=== PATIENT | female | born 1945 | race Hispanic/Latino ===

== ENCOUNTER 2018-06-23 15:33 | Inpatient (IN) | payer MEDICARE ==
--- NOTE | 2018-06-23 15:46 | C.PDOC ---
History Of Present Illness Patient BIBA from home for evaluation of altered mental status. Patient last seen at her baseline at 11:30am, and then was found by daughter at approx 2:30pm appearing nonverbal and confused. EMS reports patient being nonverbal and unable to follow commands. Patient takes Benzos (Xanax?) for anxiety. PMHx of HTN, anxiety. Patient is AAOx3 at baseline. Time Seen by Provider: 06/23/18 15:38 Chief Complaint (Nursing): Weakness/Neurological Deficit History Per: EMS History/Exam Limitations: clinical condition Onset/Duration Of Symptoms: Hrs Current Symptoms Are (Timing): Still Present Past Medical History Reviewed: Historical Data, Nursing Documentation, Vital Signs Vital Signs: Last Vital Signs Temp 98.1 F 06/23/18 15:39 Pulse 88 06/23/18 15:34 Resp 20 06/23/18 15:34 BP 187/89 H 06/23/18 15:34 Pulse Ox 95 06/23/18 15:34 - Medical History PMH: Anxiety, HTN Family History: States: Unknown Family Hx - Social History Hx Alcohol Use: No Hx Substance Use: No Review Of Systems Review Of Systems: ROS cannot be obtained secondary to pt's inabilty to answer questions. Physical Exam - Physical Exam Appears: Non-toxic, Other (awake, drowsy appearing, mumbling) Skin: Normal Color, Warm, Dry Head: Atraumatic, Normacephalic Eye(s): bilateral: Normal Inspection, PERRL, EOMI, Other (no pinpoint or dilated pupila) Oral Mucosa: Moist Cardiovascular: Rhythm Regular Respiratory: Normal Breath Sounds, No Rales, No Rhonchi, No Wheezing Gastrointestinal/Abdominal: Normal Exam, Bowel Sounds, Soft, No Tenderness Extremity: Normal ROM, No Pedal Edema, No Calf Tenderness Extremity: Left: Unable To Bear Weight, Other ED Course And Treatment - Laboratory Results Result Diagrams: 06/23/18 15:46 06/23/18 15:46 O2 Sat by Pulse Oximetry: 95 (RA) Pulse Ox Interpretation: Normal Progress Note: Code stroke called on ED arrival. 3:50pm- Called by CT scan, patient now able to speak somewhat, and tells them she is allergic to contrast. CTA head/neck cancelled. 4:15pm- Patient is awake & alert, oriented to place but confused and still having some difficulty following commands. Patient is speaking but slowly, with some stuttering. 5:10PM- Spoke with radiologist Dr. Miller, he confirms CT scan read should say "no intracranial hemorrhage", will add addendum. 5:45PM- Family now at bedside, patient is AAOx3 and functional at baseline. Has PMhx of HTN, anxiety and macular degeneration, yesterday was given Avastin injection in her eyes by her ophthamologist. Patient also seen in urgent care thursday for head/sinus "pressure/fullness", had normal evaluation there and was feeling well yesterday. NIHSS Stroke Scale 2 - Date/Time Evaluation Performed Date Performed: 06/23/18 Time Performed: 15:37 When Was NIHSS Performed: Baseline - How Severe is the Stroke Level of Consciousness: 1=Drowsy LOC to Questions: 2=Neither correct LOC to commands: 2=Neither correct Best Gaze: 0=Normal Visual: 0=No visual loss Facial: 0=Normal Motor Arm - Left: 0=No drift Motor Arm - Right: 0=No drift Motor Leg - Left: 0=No drift Motor Leg - Right: 0=No drift Limb Ataxia: 0=Absent Sensory: 0=Normal Best Language: 1=Mild to moderate aphasia Dysarthia: 1=Mild to moderate slurring Extinction & Inattention (Neglect): 0=Normal, no object Score: 7 rTPA Inclusion/Exclusion - Refusal of Treatment Patient Refused Treatment: No - Inclusion Criteria for Altepase Patient is 18 years or Older: Yes The Clinical Diagnosis of Ischemic Stroke That is Causing a Potentially Disabling Neurological Deficit: Yes Time of Onset is Well Established to be Less Than 270 Minute Before Treatment Would Begin: No Risk/Benefit Discussed With Patient/Family Member Present: No Disposition - Disposition Forms: [employer] ([place])
[2018-06-23] MEDS ORDERED: Iodixanol 320 MG/ML 100 ML BOTTLE IV ONE (15:51)
[2018-06-23 15:56] LABS: BASO % 0.3 % (0.0-2.0); EOS # 0.1 K/uL (0.0-0.7); EOS % 0.7 % (0.0-4.0); HEMOGLOBIN 12.7 g/dL (11.0-16.0); LYMPH # 0.9 K/uL (1.0-4.3); LYMPH % 10.2 % (20.0-40.0); MEAN CELL VOLUME 76.3 fL (81.0-99.0); MEAN CORPUSCULAR HEMOGLOBIN 26.1 pg (27.0-31.0); MEAN CORPUSCULAR HGB CONC 34.1 g/dL (33.0-37.0); MONO # 0.4 K/uL (0.0-0.8); MONO % 4.6 % (0.0-10.0); NEUT # 7.3 K/uL (1.8-7.0); NEUT % 84.2 % (50.0-75.0); RBC 4.87 Mil/uL (3.80-5.20); RED CELL DISTRIBUTION WIDTH 14.9 % (11.5-14.5); WHITE BLOOD COUNT 8.7 K/uL (4.8-10.8)
[2018-06-23 16:01] LABS: INR 1.1; PROTHROMBIN TIME 11.9 SECONDS (9.7-12.2)
[2018-06-23 16:04] LABS: ALB/GLOB RATIO 1.6 (1.0-2.1); ALBUMIN 4.7 g/dL (3.5-5.0); BLOOD UREA NITROGEN 13 mg/dL (7-17); CALCIUM 9.2 mg/dl (8.6-10.4); GFR NON-AFRICAN AMERICAN > 60; HDL CHOLESTEROL 48 mg/dL (30-70)
--- NOTE | 2018-06-23 16:04 | CT ---
Date of service: 06/23/2018 PROCEDURE: CT HEAD WITHOUT CONTRAST. HISTORY: Code Stroke COMPARISON: None available. TECHNIQUE: Axial computed tomography images were obtained through the head/brain without intravenous contrast. Radiation dose: Total exam DLP = 1027.87 mGy-cm. This CT exam was performed using one or more of the following dose reduction techniques: Automated exposure control, adjustment of the mA and/or kV according to patient size, and/or use of iterative reconstruction technique. FINDINGS: HEMORRHAGE: No acute parenchymal, subarachnoid nor extra-axial hemorrhage... BRAIN: Suspect minimal chronic periventricular white matter ischemic changes. There appears to be enlargement of the pituitary gland. Findings may represent a pituitary adenoma; recommend follow-up pre and postcontrast MRI of the brain.. Ventricular and sulcal size are within range of normal this patient's stated age VENTRICLES: Unremarkable. No hydrocephalus. CALVARIUM: No acute fractures. Note made of hyperostosis frontalis interna PARANASAL SINUSES: Incidental note made of a small osteoma within one of the right the mid see superior ethmoid air cells. MASTOID AIR CELLS: Unremarkable as visualized. No inflammatory changes. OTHER FINDINGS: None. IMPRESSION: Intracranial hemorrhage. Suspect minimal chronic periventricular white matter ischemic changes. There is a soft tissue mass density within the sella turcica which may represent a pituitary adenoma. Recommend follow-up pre and post-contrast MRI of the brain. Note these findings discussed with Dr. Peguero at approximately 3:57 p.m. with written down and read back verification.
[2018-06-23 16:15] LABS: LDL CHOLESTEROL 112 mg/dL (0-129)
[2018-06-23] MEDS ORDERED: Sodium Chloride 0.9% 1,000 ML IV ONE (16:15)
[2018-06-23 16:17] LABS: ALT/SGPT 20 U/L (9-52); AST/SGOT 50 U/L (14-36)
[2018-06-23 16:34] LABS: SQUAMOUS EPITHIAL < 1 /hpf (0-5); URINE BILIRUBIN NEGATIVE (NEGATIVE); URINE BLOOD NEGATIVE (NEGATIVE); URINE CLARITY Clear (Clear); URINE COLOR Yellow (YELLOW); URINE GLUCOSE (UA) NORMAL (Normal); URINE HYALINE CAST 0-2 /lpf (0-2); URINE LEUKOCYTE ESTERASE NEG Leu/uL (Negative); URINE PROTEIN NEGATIVE (NEGATIVE); URINE UROBILINOGEN NORMAL mg/dL (0.2-1.0)
--- NOTE | 2018-06-23 17:05 | RAD ---
HISTORY: Code Stroke COMPARISON: None available TECHNIQUE: Chest, one view. FINDINGS: Examination limited by habitus and hypoinflation. LUNGS: Left basilar atelectasis/infiltrate. Please note that chest x-ray has limited sensitivity for the detection of pulmonary masses. PLEURA: No significant pleural effusion identified. No definite pneumothorax . CARDIOVASCULAR: Heart appears within normal limits. Ectatic aorta. Atherosclerotic calcifications. OSSEOUS STRUCTURES: Degenerative changes. VISUALIZED UPPER ABDOMEN: Unremarkable. OTHER FINDINGS: None. IMPRESSION: Mild left basilar atelectasis/infiltrate.
[2018-06-23] MEDS: Dextrose 5%/0.45% NS 1,000 ML IV SCH (19:33)
--- NOTE | 2018-06-23 19:46 | CP.PCM.HP ---
History of Present Illness - History of Present Illness History of Present Illness: COMPREHENSIVE CONSULT HPI Patient is a 72-year-old white woman with a history of hypertension was admitted yesterday with slurring speech and acute confusional state. When the patient was examined patient had completely regained her higher functions and speech. As per the patient patient was cooking lunch in the kitchen and suddenly patient became lightheaded there is no history of fall and patient sat down and when the family discovered the patient she was dysarthric confused and diaphoretic. Patient was brought to the emergency room CAT scan of the head was done without contrast because of the history of allergy to dye which did not show any bleeding or any acute stroke. Neurology consult was consulted and patient was further admitted in the hospital. PAST HIST. Patient has history of hypertension as a regular follow-up with her doctor and claims that had a carotid Doppler done 6 months ago which was normal and echocardiogram done recently which was reported as normal patient has no previous history of TIA or stroke heart failure CO chest pain on exertion fever or chills or dysuria. PERSONAL HIST: Smoking. N Alcohol. N Allergy N Travel_- . FAMILY HIST : ROS : Constitutional: Negative for weight change, chills, night sweats, fatigue and usage of assist device. Eyes: Negative for redness, swelling, itching, discharge, vision changes, blurry vision, double vision, glaucoma, cataracts, Ears: Negative for hearing loss, ringing, , tinnitus, vertigo Nose: Negative for rhinorrhea, stuffiness, sniffing, itching, postnasal drip, discoloration, nasal congestion and epistaxis. Throat: Negative for throat clearing, sore throat, hoarseness, difficulty swallowing and difficulty speaking. Respiratory: Negative for cough, , sputum production, chest tightness, wheezing, pleuritic chest pain ,daytime somnolence, chronic cough, hemoptysis, snoring at night, Cardiovascular: Negative for chest pain, palpitations, orthopnea, PND, Edema of legs, leg cramps, angina, claudication, , irregular heartbeat, Neurology: Negative for irritability, muscle weakness, numbness and tingling, seizures, tremors, migraines, syncope, memory loss, mood changes, recurrent headaches Gastrointestinal: Negative for difficulty swallowing, diarrhea, constipation, black stools, rectal bleeding, nausea, flatulence, reflux, poor appetite, changes in bowel habits, abdominal pain Genitourinary: Negative for frequent urination, hematuria, discharge, incontinence, urinary retention, frequent UTI, Psychiatric: Negative for depression, anxiety/panic, suicidal tendencies, Musculoskeletal: Negative for swollen joints, back pain, , neck pain, morning stiffness of joints, . Skin: Negative for rash, ulcers, itching, dry skin and pigmented lesions. P/E: Constitutional: Appears stated age and in no apparent distress. Head: Normocephalic. Ears: External ear canals patent without inflammation. Tympanic membranes intact with normal light reflex and landmark. Eyes: Pupils are central, bilaterally equal, symmetrical and reacts to light with normal movements and no icterus or pallor. Nose: External nares are patent. Mucosa is pink Mouth-Throat: Good general appearance and condition. No post-pharyngeal/oropharyngeal erythema and tonsillar hypertrophy. Good dental hygiene. Neck-Lymphatic: Neck is supple with normal ROM, no thyromegaly, lymph nodes or masses. JVD is normal with no carotid bruit. Lungs: Clear to percussion and auscultation with bilateral normal air entry. Cardiovascular: S1 and S2 are normal with no murmurs, gallops and rub. GI Exam: No hepatomegaly. Abdomen is soft and non-tender. No Organomegaly , masses or hernias are evident and bowel sounds are normal and active. Neurology: Higher function and all cranial nerves intact, with no gross motor or sensory deficit. Superficial and deep reflexes are normal with downwards planters. No cerebellar deficit with normal gait. Musculoskeletal: No tender spots with normal curvature of the spine with no swelling or restricted ROM of the small and large joints. Extremities: Homans sign absent. Intact pulses with no pitting edema, calf tenderness or skin color changes. Skin: No rash, eruptions or abnormal skin pigmentation LAB/RADIOLOGY: ASSESMENT : Transient loss of cognitive function probably secondary to cerebral ischemia or seizures Hypertension PLAN: Patient was in a complete neurological workup and a baseline cardiac workup. Present on Admission - Present on Admission Any Indicators Present on Admission: No Past Patient History - Past Social History Smoking Status: Unknown If Ever Smoked - CARDIAC Hx Hypertension: Yes - PSYCHIATRIC Hx Anxiety: Yes Hx Substance Use: No - SURGICAL HISTORY Hx Surgeries: No (UNKNOWN) - ANESTHESIA Hx Anesthesia: No Meds Allergies/Adverse Reactions: Allergies Allergy/AdvReac Type Severity Reaction Status Date / Time Penicillins Allergy Verified 02/27/19 17:50 Sulfa (Sulfonamide Allergy Verified 06/23/18 17:51 Antibiotics) IV Dye Allergy Uncoded 06/23/18 17:52 Results - Vital Signs Recent Vital Signs: Last Vital Signs Temp 98.6 F 06/23/18 19:10 Pulse 86 06/23/18 19:10 Resp 22 06/23/18 19:10 BP 140/74 06/23/18 19:10 Pulse Ox 96 06/23/18 19:10 - Labs Result Diagrams: 06/24/18 06:48 06/24/18 06:48 Labs: Laboratory Results - last 24 hr 06/23/18 06/23/18 06/23/18 15:46 15:46 15:46 WBC 8.7 RBC 4.87 Hgb 12.7 Hct 37.2 MCV 76.3 L MCH 26.1 L MCHC 34.1 RDW 14.9 H Plt Count 167 MPV 8.0 Neut % (Auto) 84.2 H Lymph % (Auto) 10.2 L [place] % (Auto) 4.6 Eos % (Auto) 0.7 Baso % (Auto) 0.3 Neut # (Auto) 7.3 H Lymph # (Auto) 0.9 L [place] # (Auto) 0.4 Eos # (Auto) 0.1 Baso # (Auto) 0.0 PT 11.9 INR 1.1 APTT 29 Sodium 137 Potassium 4.0 Chloride 101 Carbon Dioxide 23 Anion Gap 17 BUN 13 Creatinine 0.6 L Est GFR ( Amer) > 60 Est GFR (Non-Af Amer) > 60 Random Glucose 181 H Hemoglobin A1c Calcium 9.2 Total Bilirubin 1.1 AST 50 H ALT 20 Alkaline Phosphatase 73 Troponin I < 0.0120 Total Protein 7.5 Albumin 4.7 Globulin 2.8 Albumin/Globulin Ratio 1.6 Triglycerides 137 Cholesterol 174 LDL Cholesterol Direct 112 HDL Cholesterol 48 Urine Color Urine Clarity Urine pH Ur Specific [place] Urine Protein Urine Glucose (UA) Urine Ketones Urine Blood Urine Nitrate Urine Bilirubin Urine Urobilinogen Ur Leukocyte Esterase Urine WBC (Auto) Urine RBC (Auto) Ur Squamous Epith Cells Hyaline Casts Blood Type Antibody Screen 06/23/18 06/23/18 06/23/18 15:46 15:47 16:16 WBC RBC Hgb Hct MCV MCH MCHC RDW Plt Count MPV Neut % (Auto) Lymph % (Auto) [place] % (Auto) Eos % (Auto) Baso % (Auto) Neut # (Auto) Lymph # (Auto) [place] # (Auto) Eos # (Auto) Baso # (Auto) PT INR APTT Sodium Potassium Chloride Carbon Dioxide Anion Gap BUN Creatinine Est GFR ( Amer) Est GFR (Non-Af Amer) Random Glucose Hemoglobin A1c 5.4 Calcium Total Bilirubin AST ALT Alkaline Phosphatase Troponin I Total Protein Albumin Globulin Albumin/Globulin Ratio Triglycerides Cholesterol LDL Cholesterol Direct HDL Cholesterol Urine Color Yellow Urine Clarity Clear Urine pH 6.0 Ur Specific [place] 1.011 Urine Protein Negative Urine Glucose (UA) Normal Urine Ketones Negative Urine Blood Negative Urine Nitrate Negative Urine Bilirubin Negative Urine Urobilinogen Normal Ur Leukocyte Esterase Neg Urine WBC (Auto) < 1 Urine RBC (Auto) < 1 Ur Squamous Epith Cells < 1 Hyaline Casts 0-2 Blood Type O POSITIVE Antibody Screen Negative
[2018-06-23 23:09] LABS: BARBITURATES, UR NEGATIVE (NEGATIVE); BENZODIAZEPINES, UR NEGATIVE (NEGATIVE); OPIATES, UR NEGATIVE (NEGATIVE); PHENCYCLIDINE, UR NEGATIVE (NEGATIVE)
[2018-06-24 01:22] VITALS: RESP 20; O2SAT 97
[2018-06-24] MEDS: Dextrose 5%/0.45% NS 1,000 ML IV SCH ×2 (04:18→12:53)
[2018-06-24 07:22] LABS: BASO % 0.4 % (0.0-2.0); EOS # 0.1 K/uL (0.0-0.7); EOS % 1.2 % (0.0-4.0); HEMOGLOBIN 11.5 g/dL (11.0-16.0); LYMPH # 1.5 K/uL (1.0-4.3); LYMPH % 18.2 % (20.0-40.0); MEAN CELL VOLUME 76.1 fL (81.0-99.0); MEAN CORPUSCULAR HGB CONC 34.2 g/dL (33.0-37.0); MEAN PLATELET VOLUME 8.2 fL (7.2-11.7); MONO # 0.7 K/uL (0.0-0.8); MONO % 8.2 % (0.0-10.0); NEUT # 6.1 K/uL (1.8-7.0); RBC 4.41 Mil/uL (3.80-5.20); RED CELL DISTRIBUTION WIDTH 14.7 % (11.5-14.5); WHITE BLOOD COUNT 8.5 K/uL (4.8-10.8)
[2018-06-24 07:29] LABS: BLOOD UREA NITROGEN 9 mg/dL (7-17); CALCIUM 8.7 mg/dl (8.6-10.4); GFR NON-AFRICAN AMERICAN > 60
--- NOTE | 2018-06-24 09:32 | MRI ---
Date of service: 06/23/2018 PROCEDURE: MRI BRAIN WITHOUT CONTRAST HISTORY: confusion, r/o cva COMPARISON: Noncontrast head CT 06/23/2018. TECHNIQUE: Multiplanar, multisequence MR images of the brain were obtained without intravenous contrast enhancement. FINDINGS: HEMORRHAGE: None DWI: No evidence of an acute or early subacute infarction. BRAIN PARENCHYMA: Good corticomedullary differentiation is seen. Proportional, diffuse expansion of the ventriculosulcal and cisternal spaces is appreciated with white matter lucency compatible with diffuse cerebral atrophy and chronic microangiopathy. Tiny dilated perivascular spaces are occasionally seen scattered at the bilateral cerebral hemispheres at the anterior and mid parenchymal distribution bilaterally. No suspicious extra-axial fluid collection is identified and the midline brain anatomy appears grossly nonfocal as imaged. There is no mass effect throughout. VENTRICLES: Unremarkable. No hydrocephalus. CRANIUM: Unremarkable. ORBITS: Grossly unremarkable. PARANASAL SINUSES/MASTOIDS: Clear VASCULAR SYSTEM: Skull base flow voids intact. OTHER FINDINGS: None. IMPRESSION: Limited age-related neuro degenerative findings as discussed above. No mass effect, acute separate brain infarction or extra-axial fluid collection appreciable. No hydrocephalus.
--- NOTE | 2018-06-24 11:00 | CP.PCM.CON ---
History of Present Illness - History of Present Illness History of Present Illness: Neurology Consultation Note: Consult requested by Dr. Godfrey Mrs. Guzman is a 72-year-old woman with a past medical history of HTN and anxiety, who was brought to the ED for confusion and disorientation. According to the patient's daughter, Mallorie, the patient was normal at 11 AM. Then, at around 1 PM, a family member called the patient, and she was confused and repeating "I don't know, I don't know". Other family member arrived to the house and found the patient to be disoriented and were concerned. She was brought to the ED, where she started to become more coherent. She did not have dysarthria or aphasia per se, but had difficulty answering questions and appeared to be staring blankly at times. She went for the CT head, and it was negative for acute findings. When she came back from the CT, the patient was ba ck to baseline. MRI of the brain did not show any significant findings. Review of Systems - Constitutional Constitutional: As Per HPI - EENT Eyes: absent: As Per HPI, Blind Spots, Blurred Vision, Change in Vision, Decreased Night Vision, Diplopia, Discharge, Dry Eye, Exophthalmos, Floaters, Irritation, Itchy Eyes, Loss of Peripheral Vision, Pain, Photophobia, Requires Corrective Lenses, Sees Flashes, Spots in Vision, Tunnel Vision, Other Visual Disturbances, Loss of Vision, Other Ears: absent: As Per HPI, Decreased Hearing, Ear Discharge, Ear Pain, Tinnitus, Abnormal Hearing, Disequilibrium, Dizziness, Other Nose/Mouth/Throat: absent: As Per HPI, Epistaxis, Nasal Congestion, Nasal Discharge, Nasal Obstruction, Nasal Trauma, Nose Pain, Post Nasal Drip, Sinus Pain, Sinus Pressure, Bleeding Gums, Change in Voice, Dental Pain, Dry Mouth, Dysphagia, Halitosis, Hoarsness, Lip Swelling, Mouth Lesions, Mouth Pain, Odynophagia, Sore Throat, Throat Swelling, Tongue Swelling, Facial Pain, Neck Pain, Neck Mass, Other - Cardiovascular Cardiovascular: absent: As Per HPI, Acrocyanosis, Chest Pain, Chest Pain at Rest, Chest Pain with Activity, Claudication, Diaphoresis, Dyspnea, Dyspnea on Exertion, Edema, Irregular Heart Rhythm, Pain Radiating to Arm/Neck/Jaw, Leg Edema, Leg Ulcers, Lightheadedness, Orthopnea, Palpitations, Paroxysmal Nocturnal Dyspnea, Pedal Edema, Radiating Pain, Rapid Heart Rate, Slow Heart Rate, Syncope, Other - Respiratory Respiratory: absent: As Per HPI, Cough, Dyspnea, Hemoptysis, Dyspnea on Exertion, Wheezing, Snoring, Stridor, Pain on Inspiration, Chest Congestion, Excessive Mucous Production, Change in Mucous Color, Pain with Coughing, Other - Gastrointestinal Gastrointestinal: absent: As Per HPI, Abdominal Pain, Belching, Bloating, Change in Bowel Habits, Change in Stool Character, Coffee Ground Emesis, Constipation, Cramping, Diarrhea, Dyspepsia, Dysphagia, Early Satiety, Excessive Flatus, Fecal Incontinence, Heartburn, Hematemesis, Hematochezia, Loose Stools, Melena, Nausea, Odynophagia, Temesmus, Vomiting, Other - Musculoskeletal Musculoskeletal: absent: As Per HPI, Abnormal Gait, Arthralgias, Atrophy, Back Pain, Deformity, Joint Swelling, Limited Range of Motion, Loss of Height, Muscle Cramps, Muscle Weakness, Myalgias, Neck Pain, Numbness, Radiating Pain into Limb, Stiffness, Tingling, Other - Integumentary Integumentary: absent: As Per HPI, Acne, Alopecia, Bleeding Lesions, Change in H air, Change in Nails, Change in Pigmentation, Changing Lesions, Dry Skin, Erythema, Furuncle, Hirsutism, Lesions, New Lesions, Non-Healing Lesions, Photosensitivity, Pruritus, Rash, Skin Pain, Skin Ulcer, Sores, Striae, Swelling, Unusual Bruising, Wounds, Jaundice, Other - Neurological Neurological: As Per HPI - Psychiatric Psychiatric: absent: As Per HPI, Abnormal Sleep Pattern, Anhedonia, Anxiety, Auditory Hallucinations, Behavioral Changes, Change in Appetite, Change in Libido, Confusion, Depression, Difficulty Concentrating, Hallucinations, Homicidal Ideation, Hopelessness, Irritability, Memory Loss, Mood Swings, Panic Attacks, Paranoia, Suicidal Ideation, Visual Hallucinations, Tactile Hallucinations, Other - Endocrine Endocrine: absent: As Per HPI, Change in Body Appearance, Change in Libido, Cold Intolorance, Deepening of Voice, Excessive Sweating, Fatigue, Flushing, Heat Intolorance, Increase in Ring/Shoe/Hat Size, Palpitations, Polydipsia, Polyphagia, Polyuria, Other - Hematologic/Lymphatic Hematologic: absent: As Per HPI, Easy Bleeding, Easy Bruising, Lymphadenopathy, Other Past Patient History - Past Medical History & Family History Past Medical History?: Yes - Past Social History Smoking Status: Unknown If Ever Smoked - CARDIAC Hx Hypertension: Yes - PULMONARY Hx Respiratory Disorders: No - NEUROLOGICAL Hx Neurological Disorder: No Other/Comment: headaches - HEENT Hx HEENT Problems: No - RENAL Hx Chronic Kidney Disease: No - ENDOCRINE/METABOLIC Hx Endocrine Disorders: No - HEMATOLOGICAL/ONCOLOGICAL Hx Blood Disorders: No - INTEGUMENTARY Hx Dermatological Problems: No - MUSCULOSKELETAL/RHEUMATOLOGICAL Hx Musculoskeletal Disorders: No Hx Falls: No - GASTROINTESTINAL Hx Gastrointestinal Disorders: No - GENITOURINARY/GYNECOLOGICAL Hx Genitourinary Disorders: No - PSYCHIATRIC Hx Anxiety: Yes Hx Substance Use: No - SURGICAL HISTORY Hx Surgeries: No (UNKNOWN) - ANESTHESIA Hx Anesthesia: No Meds Allergies/Adverse Reactions: Allergies Allergy/AdvReac Type Severity Reaction Status Date / Time Penicillins Allergy Verified 06/23/18 17:50 Sulfa (Sulfonamide Allergy Verified 06/23/18 17:51 Antibiotics) IV Dye Allergy Uncoded 06/23/18 17:52 - Medications Medications: Current Medications Dextrose/Sodium Chloride (Dextrose 5%/0.45% Ns 1000 Ml) 1,000 mls @ 120 mls/hr IV .Q8H20M DARRYL Last Admin: 06/24/18 04:18 Dose: 120 mls/hr Potassium Chloride (Potassium Chloride 20 Meq/100 Ml) 20 meq in 100 mls @ 50 mls/hr IVPB Q2 DARRYL Stop: 06/24/18 13:59 Ondansetron HCl (Zofran Inj) 4 mg IVP Q6 PRN PRN Reason: Nausea/Vomiting Last Admin: 06/23/18 19:33 Dose: 4 mg Physical Exam - Constitutional Appears: Well - Head Exam Head Exam: ATRAUMATIC, NORMAL INSPECTION, NORMOCEPHALIC - Eye Exam Eye Exam: EOMI, Normal appearance, PERRL Pupil Exam: NORMAL ACCOMODATION, PERRL - ENT Exam ENT Exam: Mucous Membranes Moist, Normal Exam - Neck Exam Neck exam: Positive for: Normal Inspection - Respiratory Exam Respiratory Exam: Clear to Auscultation Bilateral, NORMAL BREATHING PATTERN - Cardiovascular Exam Cardiovascular Exam: REGULAR RHYTHM, +S1, +S2 - GI/Abdominal Exam GI & Abdominal Exam: Normal Bowel Sounds, Soft. absent: Tenderness - Extremities Exam Extremities exam: Positive for: normal inspection - Back Exam Back exam: NORMAL INSPECTION - Neurological Exam Neurological exam: Alert, CN II-XII Intact, Normal Gait, Oriented x3, Reflexes Normal Additional comments: Mental status is clear, memory, orientation, speech and attention are intact. - Psychiatric Exam Psychiatric exam: Normal Affect, Normal Mood - Skin Skin Exam: Dry, Intact, Normal Color, Warm Results - Vital Signs Recent Vital Signs: Last Vital Signs Temp 98 F 06/24/18 07:00 Pulse 77 06/24/18 07:00 Resp 20 06/24/18 07:00 BP 145/73 06/24/18 07:00 Pulse Ox 97 06/24/18 07:00 - Labs Result Diagrams: 06/24/18 06:48 06/24/18 06:48 Labs: Laboratory Results - last 24 hr 06/23/18 06/23/18 06/23/18 15:46 15:46 15:46 WBC 8.7 RBC 4.87 Hgb 12.7 Hct 37.2 MCV 76.3 L MCH 26.1 L MCHC 34.1 RDW 14.9 H Plt Count 167 MPV 8.0 Neut % (Auto) 84.2 H Lymph % (Auto) 10.2 L [place] % (Auto) 4.6 Eos % (Auto) 0.7 Baso % (Auto) 0.3 Neut # (Auto) 7.3 H Lymph # (Auto) 0.9 L [place] # (Auto) 0.4 Eos # (Auto) 0.1 Baso # (Auto) 0.0 PT 11.9 INR 1.1 APTT 29 Sodium 137 Potassium 4.0 Chloride 101 Carbon Dioxide 23 Anion Gap 17 BUN 13 Creatinine 0.6 L Est GFR ( Amer) > 60 Est GFR (Non-Af Amer) > 60 Random Glucose 181 H Hemoglobin A1c Calcium 9.2 Total Bilirubin 1.1 AST 50 H ALT 20 Alkaline Phosphatase 73 Troponin I < 0.0120 Total Protein 7.5 Albumin 4.7 Globulin 2.8 Albumin/Globulin Ratio 1.6 Triglycerides 137 Cholesterol 174 LDL Cholesterol Direct 112 HDL Cholesterol 48 Urine Color Urine Clarity Urine pH Ur Specific [place] Urine Protein Urine Glucose (UA) Urine Ketones Urine Blood Urine Nitrate Urine Bilirubin Urine Urobilinogen Ur Leukocyte Esterase Urine WBC (Auto) Urine RBC (Auto) Ur Squamous Epith Cells Hyaline Casts Urine Opiates Screen Urine Methadone Screen Ur Barbiturates Screen Ur Phencyclidine Scrn Ur Amphetamines Screen U Benzodiazepines Scrn U Oth Cocaine Metabols U Cannabinoids Screen Blood Type Antibody Screen 06/23/18 06/23/18 06/23/18 15:46 15:47 16:16 WBC RBC Hgb Hct MCV MCH MCHC RDW Plt Count MPV Neut % (Auto) Lymph % (Auto) [place] % (Auto) Eos % (Auto) Baso % (Auto) Neut # (Auto) Lymph # (Auto) [place] # (Auto) Eos # (Auto) Baso # (Auto) PT INR APTT Sodium Potassium Chloride Carbon Dioxide Anion Gap BUN Creatinine Est GFR ( Amer) Est GFR (Non-Af Amer) Random Glucose Hemoglobin A1c 5.4 Calcium Total Bilirubin AST ALT Alkaline Phosphatase Troponin I Total Protein Albumin Globulin Albumin/Globulin Ratio Triglycerides Cholesterol LDL Cholesterol Direct HDL Cholesterol Urine Color Yellow Urine Clarity Clear Urine pH 6.0 Ur Specific [place] 1.011 Urine Protein Negative Urine Glucose (UA) Normal Urine Ketones Negative Urine Blood Negative Urine Nitrate Negative Urine Bilirubin Negative Urine Urobilinogen Normal Ur Leukocyte Esterase Neg Urine WBC (Auto) < 1 Urine RBC (Auto) < 1 Ur Squamous Epith Cells < 1 Hyaline Casts 0-2 Urine Opiates Screen Urine Methadone Screen Ur Barbiturates Screen Ur Phencyclidine Scrn Ur Amphetamines Screen U Benzodiazepines Scrn U Oth Cocaine Metabols U Cannabinoids Screen Blood Type O POSITIVE Antibody Screen Negative 06/23/18 06/24/18 06/24/18 22:39 06:48 06:48 WBC 8.5 RBC 4.41 Hgb 11.5 Hct 33.6 L MCV 76.1 L MCH 26.0 L MCHC 34.2 RDW 14.7 H Plt Count 178 MPV 8.2 Neut % (Auto) 72.0 Lymph % (Auto) 18.2 L [place] % (Auto) 8.2 Eos % (Auto) 1.2 Baso % (Auto) 0.4 Neut # (Auto) 6.1 Lymph # (Auto) 1.5 [place] # (Auto) 0.7 Eos # (Auto) 0.1 Baso # (Auto) 0.0 PT INR APTT Sodium 136 Potassium 3.2 L Chloride 102 Carbon Dioxide 27 Anion Gap 10 BUN 9 Creatinine 0.6 L Est GFR ( Amer) > 60 Est GFR (Non-Af Amer) > 60 Random Glucose 144 H D Hemoglobin A1c Calcium 8.7 Total Bilirubin AST ALT Alkaline Phosphatase Troponin I Total Protein Albumin Globulin Albumin/Globulin Ratio Triglycerides Cholesterol LDL Cholesterol Direct HDL Cholesterol Urine Color Urine Clarity Urine pH Ur Specific [place] Urine Protein Urine Glucose (UA) Urine Ketones Urine Blood Urine Nitrate Urine Bilirubin Urine Urobilinogen Ur Leukocyte Esterase Urine WBC (Auto) Urine RBC (Auto) Ur Squamous Epith Cells Hyaline Casts Urine Opiates Screen Negative Urine Methadone Screen Negative Ur Barbiturates Screen Negative Ur Phencyclidine Scrn Negative Ur Amphetamines Screen Negative U Benzodiazepines Scrn Negative U Oth Cocaine Metabols Negative U Cannabinoids Screen Negative Blood Type Antibody Screen Assessment & Plan (1) Acute encephalopathy Assessment and Plan: This appears to have resolved. The differential includes complex partial seizure, transient global amnesia or transient ischemic attack. I recommend starting the patient on aspirin 81 mg daily for cerebrovascular protection. An EEG for 1 hour is also recommended. If the EEG is normal, no anti-seizure medications are needed. If the EEG is abnormal, then we can start Keppra 500 mg BID. Otherwise, no further recommendations at this time. Thank you for this consultation. Status: Acute
--- NOTE | 2018-06-24 14:52 | CP.PCM.PN ---
Subjective - Date & Time of Evaluation Date of Evaluation: 06/24/18 Time of Evaluation: 14:49 - Subjective Subjective: CHIEF COMPLAINTS TODAY : Mild headache no neuro deficit. ROS. HEENT : N. Resp : No cough, wheezing ,pleuritic CP ,or hemoptysis Cardio : No anginal CP, PND, orthopnea, palpitation GI : No abd.pain, n/v ,diarrhea or GI bleeding . IC DESIGN MANAGER : No headache, vertigo, focal deficit. Musculoskel : No joint swelling , Derm : No rash Psych : Normal affect. Ext : No swelling ,calf pain PE. Pt. is alert awake in no distress. V.S As noted in the chart Head ,ear nose,throat and eyes : Normal. Neck : Supple with normal carotids. Lungs: Clear air entry. Heart : S1 & S2 normal with S4. No murmur. Abd : Soft non tender with normal bowel sounds. Neuro : Moves all ext. with no localized deficit. Ext : No edema with intact pulses.Non tender calves Derm : No rashes or decubitus ulcer. LABS/RADIOLOGY: MRI of the brain shows no abnormalities ASSESSMENT/PLAN : Neuro evaluation noted Patient has a history of questionable von Willebrand disease and has been told not to take aspirin. Follow up on the test of carotid Doppler echo and EEG. Objective - Vital Signs/Intake and Output Vital Signs (last 24 hours): Temp Pulse Resp BP Pulse Ox 98 F 75 20 145/73 97 06/24/18 07:00 06/24/18 13:14 06/24/18 07:00 06/24/18 07:00 06/24/18 07:00 Intake and Output: 06/24/18 06/24/18 11:59 23:59 Intake Total 960 Balance 960 - Medications Medications: Current Medications Dextrose/Sodium Chloride (Dextrose 5%/0.45% Ns 1000 Ml) 1,000 mls @ 120 mls/hr IV .Q8H20M DARRYL Last Admin: 06/24/18 12:53 Dose: Not Given Ondansetron HCl (Zofran Inj) 4 mg IVP Q6 PRN PRN Reason: Nausea/Vomiting Last Admin: 06/23/18 19:33 Dose: 4 mg - Labs Labs: 06/24/18 06:48 06/24/18 06:48 PT 11.9 SECONDS (9.7-12.2) 06/23/18 15:46 INR 1.1 06/23/18 15:46 APTT 29 SECONDS (21-34) 06/23/18 15:46
[2018-06-24] MEDS ORDERED: Potassium Chloride 20 mEq ER Tab PO SCH (16:15)
[2018-06-24 17:18] VITALS: BP 137/69; PULSE 74; TEMP 97.8
--- NOTE | 2018-06-25 05:15 | CARD ---
APPROVED REPORT Date of service: 06/24/2018 EXAM: Two-dimensional and M-mode echocardiogram with Doppler and color Doppler. INDICATION CVA/TIA RISK FACTORS Hypertension 2D DIMENSIONS IVSd0.9 (0.7-1.1cm)Aortic Root (2D)3.3 (2.0-3.7cm) LVDd4.2 (3.9-5.9cm)PWd1.0 (0.7-1.1cm) LA Ksbkma43 (18-58mL)LVDs2.7 (2.5-4.0cm) FS (%) 34.5 %LVEF (%)64.0 (>50%) LVEF ([place]'s)50.57 %IVC0.00 cm M-Mode DIMENSIONS RVDd2.00 (2.1-3.2cm)Left Atrium (MM)3.31 (2.5-4.0cm) IVSd1.03 (0.7-1.1cm)Aortic Root3.31 (2.2-3.7cm) LVDd4.80 (4.0-5.6cm)Aortic Cusp Exc.2.07 (1.5-2.0cm) PWd0.94 (0.7-1.1cm)FS (%) 33 % LVDs3.22 (2.0-3.8cm)TAPSE17.01 cm LVEF (%)61 (>50%) Mitral Valve MV E Ypvtprax02.1cm/sMV A Tyekimtb34.9cm/sE/A ratio1.0 TDI Lateral E' Peak V7.25cm/sMedial E' Peak V5.51cm/sE/Lateral E'12.2 E/Medial E'16.0 Tricuspid Valve TR Peak Lizyrqle757de/sTR Peak Gr.70trHbOJAF11thAj LEFT VENTRICLE The left ventricle is normal size. There is normal left ventricular wall thickness. Left ventricle systolic function is normal. The Ejection Fraction is 55-60%. There is normal LV segmental wall motion. The left ventricular diastolic function is normal. RIGHT VENTRICLE The right ventricle is normal size. There is normal right ventricular wall thickness. The right ventricular systolic function is normal. ATRIA The left atrium size is normal. The right atrium size is normal. The interatrial septum is intact with no evidence for an atrial septal defect. AORTIC VALVE The aortic valve is normal in structure. No aortic regurgitation is present. There is no aortic valvular stenosis. MITRAL VALVE The mitral valve is normal in structure. There is no evidence of mitral valve prolapse. There is no mitral valve stenosis. Mitral regurgitation is mild. TRICUSPID VALVE The tricuspid valve is normal in structure. There is mild tricuspid regurgitation. Right ventricular systolic pressure is estimated at less than 30 mmHg. There is no pulmonary hypertension. PULMONIC VALVE The pulmonic valve is not well visualized. There is mild pulmonic valvular regurgitation. GREAT VESSELS The aortic root is normal in size. PERICARDIAL EFFUSION There is no significant pericardial effusion. <Conclusion> Left ventricle systolic function is normal. The Ejection Fraction is 55-60%. No aortic regurgitation is present. Mitral regurgitation is mild. There is mild tricuspid regurgitation. There is no pulmonary hypertension. There is mild pulmonic valvular regurgitation.
--- NOTE | 2018-06-25 12:15 | CP.PCM.DIS ---
Provider - Provider Date of Admission: 06/23/18 17:53 Attending physician: Lalitha Godfrey MD Consults: 06/23/18 15:40 Stroke Team Consult Stat Comment: Consulting Provider: Neurohospitalist Consulting Physician: NEUROHOSP Neurohospitalist for Consult: Campbell Mallory Neurohospitalist for Consult: Katelyn Pena Reason for Consult: stroke 06/23/18 16:30 Physician Consult Stat Comment: CODE STROKE- TIA VS SEIZURE Consulting Provider: Campbell Mallory Consulting Physician: Campbell Mallory Reason for Consult: NEUROLOGY Time Spent in preparation of Discharge (in minutes): 35 Hospital Course - Lab Results Lab Results: Micro Results 06/23/18 16:16 Urine Random Urine Culture - Final No Growth (<1,000 CFU/ML) Most Recent Lab Values WBC 8.5 K/uL (4.8-10.8) 06/24/18 06:48 RBC 4.41 Mil/uL (3.80-5.20) 06/24/18 06:48 Hgb 11.5 g/dL (11.0-16.0) 06/24/18 06:48 Hct 33.6 % (34.0-47.0) L 06/24/18 06:48 MCV 76.1 fL (81.0-99.0) L 06/24/18 06:48 MCH 26.0 pg (27.0-31.0) L 06/24/18 06:48 MCHC 34.2 g/dL (33.0-37.0) 06/24/18 06:48 RDW 14.7 % (11.5-14.5) H 06/24/18 06:48 Plt Count 178 K/uL (130-400) 06/24/18 06:48 MPV 8.2 fL (7.2-11.7) 06/24/18 06:48 Neut % (Auto) 72.0 % (50.0-75.0) 06/24/18 06:48 Lymph % (Auto) 18.2 % (20.0-40.0) L 06/24/18 06:48 [place] % (Auto) 8.2 % (0.0-10.0) 06/24/18 06:48 Eos % (Auto) 1.2 % (0.0-4.0) 06/24/18 06:48 Baso % (Auto) 0.4 % (0.0-2.0) 06/24/18 06:48 Neut # (Auto) 6.1 K/uL (1.8-7.0) 06/24/18 06:48 Lymph # (Auto) 1.5 K/uL (1.0-4.3) 06/24/18 06:48 [place] # (Auto) 0.7 K/uL (0.0-0.8) 06/24/18 06:48 Eos # (Auto) 0.1 K/uL (0.0-0.7) 06/24/18 06:48 Baso # (Auto) 0.0 K/uL (0.0-0.2) 06/24/18 06:48 PT 11.9 SECONDS (9.7-12.2) 06/23/18 15:46 INR 1.1 06/23/18 15:46 APTT 29 SECONDS (21-34) 06/23/18 15:46 Sodium 136 mmol/L (132-148) 06/24/18 06:48 Potassium 3.2 mmol/L (3.6-5.2) L 06/24/18 06:48 Chloride 102 mmol/L (98-107) 06/24/18 06:48 Carbon Dioxide 27 mmol/L (22-30) 06/24/18 06:48 Anion Gap 10 (10-20) 06/24/18 06:48 BUN 9 mg/dL (7-17) 06/24/18 06:48 Creatinine 0.6 mg/dL (0.7-1.2) L 06/24/18 06:48 Est GFR ( Amer) > 60 06/24/18 06:48 Est GFR (Non-Af Amer) > 60 06/24/18 06:48 Random Glucose 144 mg/dL (65-105) H D 06/24/18 06:48 Hemoglobin A1c 5.4 % (4.2-6.5) 06/23/18 15:46 Calcium 8.7 mg/dl (8.6-10.4) 06/24/18 06:48 Total Bilirubin 1.1 mg/dL (0.2-1.3) 06/23/18 15:46 AST 50 U/L (14-36) H 06/23/18 15:46 ALT 20 U/L (9-52) 06/23/18 15:46 Alkaline Phosphatase 73 U/L (38-126) 06/23/18 15:46 Troponin I < 0.0120 ng/mL (0.00-0.120) 06/23/18 15:46 Total Protein 7.5 g/dL (6.3-8.3) 06/23/18 15:46 Albumin 4.7 g/dL (3.5-5.0) 06/23/18 15:46 Globulin 2.8 gm/dL (2.2-3.9) 06/23/18 15:46 Albumin/Globulin Ratio 1.6 (1.0-2.1) 06/23/18 15:46 Triglycerides 137 mg/dL (0-149) 06/23/18 15:46 Cholesterol 174 mg/dL (0-199) 06/23/18 15:46 LDL Cholesterol Direct 112 mg/dL (0-129) 06/23/18 15:46 HDL Cholesterol 48 mg/dL (30-70) 06/23/18 15:46 Urine Color Yellow (YELLOW) 06/23/18 16:16 Urine Clarity Clear (Clear) 06/23/18 16:16 Urine pH 6.0 (5.0-8.0) 06/23/18 16:16 Ur Specific [place] 1.011 (1.003-1.030) 06/23/18 16:16 Urine Protein Negative mg/dL (NEGATIVE) 06/23/18 16:16 Urine Glucose (UA) Normal mg/dL (Normal) 06/23/18 16:16 Urine Ketones Negative mg/dL (NEGATIVE) 06/23/18 16:16 Urine Blood Negative (NEGATIVE) 06/23/18 16:16 Urine Nitrate Negative (NEGATIVE) 06/23/18 16:16 Urine Bilirubin Negative (NEGATIVE) 06/23/18 16:16 Urine Urobilinogen Normal mg/dL (0.2-1.0) 06/23/18 16:16 Ur Leukocyte Esterase Neg [place]/uL (Negative) 06/23/18 16:16 Urine WBC (Auto) < 1 /hpf (0-5) 06/23/18 16:16 Urine RBC (Auto) < 1 /hpf (0-3) 06/23/18 16:16 Ur Squamous Epith Cells < 1 /hpf (0-5) 06/23/18 16:16 Hyaline Casts 0-2 /lpf (0-2) 06/23/18 16:16 Urine Opiates Screen Negative (NEGATIVE) 06/23/18 22:39 Urine Methadone Screen Negative (NEGATIVE) 06/23/18 22:39 Ur Barbiturates Screen Negative (NEGATIVE) 06/23/18 22:39 Ur Phencyclidine Scrn Negative (NEGATIVE) 06/23/18 22:39 Ur Amphetamines Screen Negative (NEGATIVE) 06/23/18 22:39 U Benzodiazepines Scrn Negative (NEGATIVE) 06/23/18 22:39 U Oth Cocaine Metabols Negative (NEGATIVE) 06/23/18 22:39 U Cannabinoids Screen Negative (NEGATIVE) 06/23/18 22:39 Blood Type O POSITIVE 06/23/18 15:47 Antibody Screen Negative 06/23/18 15:47 - Hospital Course Hospital Course: Patient is a 72-year-old white woman with a history of hypertension was admitted yesterday with slurring speech and acute confusional state. When the patient was examined patient had completely regained her higher functions and speech. As per the patient patient was cooking lunch in the kitchen and suddenly patient became lightheaded there is no history of fall and patient sat down and when the family discovered the patient she was dysarthric confused and diaphoretic. Patient was brought to the emergency room CAT scan of the head was done without contrast because of the history of allergy to dye which did not show any bleeding or any acute stroke. Neurology consult was consulted and patient was further admitted in the hospital. PAST HIST. Patient has history of hypertension as a regular follow-up with her doctor and claims that had a carotid Doppler done 6 months ago which was normal and echocardiogram done recently which was reported as normal patient has no previous history of TIA or stroke heart failure IN chest pain on exertion fever or chills or dysuria. Patient was admitted on a telemetry bed there was no evidence of any cardiac arrhythmia in 24 hours. Echocardiogram was done report was pending MRI of the head was negative Carotid Doppler showed no evidence of carotid disease 1 hour EEG was done which did not show any focus As per the neurology patient was stable for transfer and will continue further treatment outpatient with her primary care doctor Current diagnosis is possible TIA and should continue taking aspirin if there is a question of von Willebrand's disease and patient should take Plavix. Patient will continue her home medications and patient was discharged in a stable neurocardiac status Discharge Exam - Head Exam Head Exam: ATRAUMATIC, NORMAL INSPECTION, NORMOCEPHALIC Discharge Plan - Follow Up Plan Condition: GOOD Disposition: HOME/ ROUTINE Instructions: Heart Healthy Diet, Altered Mental Status (DC) Additional Instructions: CONTINUE WITH CURRENT HOME MEDICATIONS. PLEASE SCHEDULE FOLLOW UP WITH YOUR PRIMARY CARE PHYSICIAN. Referrals: Lalitha Godfrey MD [Staff Provider] -
--- NOTE | 2018-06-25 16:15 | PCM.EEG ---
Electroencephalogram Report - Electroencephalogram Report Procedure Date: 06/24/18 Medication: Aspirin Interpretation: Technical Information: This was a 16 -channel EEG, 1-channel EKG routine EEG performed using an [employer] machine. Electrodes were applied using the 10/20 international placement system. Start; 11;58 End; 12;20 Total 22 min Clinical Information: syncope During resting wakefulness there was a symmetric posterior dominant rhythm at 8.5-9.5 Hz, 30-50 uV, which was reactive to eye opening and closing. Drowsiness was (12;13) associated with fragmentation of the posterior dominant rhythm and with slow roving eye movements. Hyperventilation was not performed. Photic stimulation was performed and there were no changes on the record. Focal abnormality; none ECG was associated with a normal sinus rhythm. Impression: This is a normal awake and drowsy electroencephalogram
--- NOTE | 2018-06-25 18:50 | VASCLAB ---
Date of service: 06/24/2018 PROCEDURE: Carotid Duplex Exam. HISTORY: TIA COMPARISON: None available. TECHNIQUE: Grayscale and duplex Doppler evaluation of the cervical carotid and vertebral arteries were performed. The common carotid, carotid bifurcations and cervical Internal Carotid Artery (ICA) and proximal External Carotid Artery (ECA) were evaluated. The vertebral arteries were evaluated for gross patency and flow direction. Report prepared by JOSHUA Alonso FINDINGS: RIGHT CAROTID ARTERIES: 1. Common Carotid Artery: No significant focal plaque formation of the right common carotid artery. Maximum Peak Systolic velocity: 82 cm/sec: End-diastolic velocity 18 cm/sec. 2. Carotid Bifurcation: No significant focal plaque formation. Maximum Peak Systolic velocity: 48 cm/sec: End-diastolic velocity 13 cm/sec. 3. Internal Carotid Artery: Plaque description: Heterogeneous 3.1. Proximal Segment: Peak systolic velocity 51 cm/sec: End-diastolic velocity 14 cm/sec - % stenosis 0-15% 3.2. Middle Segment: Peak systolic velocity 63 cm/sec: End-diastolic velocity 22 cm/sec - % stenosis 0-15% 3.3. Distal Segment: Peak systolic velocity 78 cm/sec: End-diastolic velocity 24 cm/sec - % stenosis 0-15% 4. External Carotid Artery: No significant focal plaque formation. Peak systolic velocity 73 cm/sec 5. ICA/CCA Ratio: 1.4 LEFT CAROTID ARTERIES: 1. Common Carotid Artery: No significant focal plaque formation of the left common carotid artery. Maximum Peak Systolic velocity: 90 cm/sec: End-diastolic velocity 16 cm/sec. 2. Carotid Bifurcation: No significant focal plaque formation. Maximum Peak Systolic velocity: 44 cm/sec: End-diastolic velocity 12 cm/sec. 3. Internal Carotid Artery: Plaque description: Heterogeneous 3.1. Proximal Segment: Peak systolic velocity 59 cm/sec: End-diastolic velocity 21 cm/sec - % stenosis 0-15% 3.2. Middle Segment: Peak systolic velocity 84 cm/sec: End-diastolic velocity 25 cm/sec - % stenosis 0-15% 3.3. Distal Segment: Peak systolic velocity 64 cm/sec: End-diastolic velocity 24 cm/sec - % stenosis 0-15% 4. External Carotid Artery: No significant focal plaque formation. Peak systolic velocity 79 cm/sec 5. ICA/CCA Ratio: 1.3 VERTEBRAL ARTERIES: 1. Right Vertebral Artery: The right vertebral artery flow direction is antegrade. 2. Left Vertebral Artery: The left vertebral artery flow direction is antegrade. OTHER FINDINGS: 1. Right Brachial Blood pressure: 145 mmHg. 2. Left Brachial Blood pressure: 140 mmHg. IMPRESSION: RIGHT: Duplex scan does not suggest hemodynamically significant stenosis of the right extracranial carotid arteries. LEFT: Duplex scan does not suggest hemodynamically significant stenosis of the left extracranial carotid arteries.
== END 2018-06-24 18:15 | disposition home or self-care (01) | DRG 72 ==
LOC: C.ER 15:33 → C.6T 17:53
PROVIDERS: ADMIT Internal Medicine Cardiovascular Disease; ATTEND Internal Medicine Cardiovascular Disease
DX: G93.40 Encephalopathy, unspecified (principal); I10 Essential (primary) hypertension; F41.9 Anxiety disorder, unspecified; Z91.041 Radiographic dye allergy status